=== PATIENT | female | born 1950 | race Caucasian/White ===

== ENCOUNTER → 2017-03-17 | Outpatient (CLI) | payer MEDICARE, BC ==
[2017-03-17 15:44] LABS: IGA - IMMUNOGLOBULIN A 106.04 MG/DL (70-400); IGG - IMMUNOGLOBULIN G 595.63 MG/DL (700-1600); IGM - IMMUNOGLOBULIN M 62.96 MG/DL (40-230)
[2017-03-17 17:32] LABS: THYROID STIM HORMONE-TSH 0.57 MIU/L (0.47-4.68)
[2017-03-20 02:53] LABS: FREE T4 (FREE THYROXINE)-BATCH 1.15 NG/DL (0.78-2.19)
[2017-03-20 03:47] LABS: FOLATE > 20.0 NG/ML (2.76-20); VITAMIN B12 - BATCH 804 PG/ML (239-931)
== END ==
LOC: LAB 14:44
PROVIDERS: ATTEND Internal Medicine Hematology & Oncology
DX: R53.83 Other fatigue (principal)
CPT/HCPCS: 36415; 82607; 82746; 82784; 83090; 83615; 83625; 83883; 83921; 84155; 84165; 84439; 84443; 86334